=== PATIENT | male | born 1995 | race Caucasian/White ===

== ENCOUNTER → 2019-08-19 | Day surgery (SDC) | payer BC ==
[~2019-08-19] MED LIST: ACETAMINOPHEN 1000 MG/100 ML 100 ML IV ONE; ACETAMINOPHEN 1000 MG/100 ML IV ONE; BUPIVACAINE 0.25% 30ML SDV INJ ONE; CEFAZOLIN SOD 1 GM/NS 50ML 100 ML IV ONE; DEXAMETHASONE SOD PHOS INJ 4 MG/ML VIAL ONE; FENTANYL CITRATE/PF 100MCG/2 ML INJ ONE; LIDOCAINE HCL 2% LOCAL INJ 5 ML SDV VIAL INJ ONE; MIDAZOLAM HCL 2 MG/2 ML VIAL ONE; ONDANSETRON HCL INJ 2MG/ML 2ML 2 MG/ML VIAL ONE; PROPOFOL IV EMULSION 10 MG/ML 20 ML VIAL ONE; ROCURONIUM BROMIDE 10 MG/ML 5ML VIAL ONE; SEVOFLURANE INHAL SOLN 250 ML PEN BTL ONE
[2019-08-19 11:05] VITALS: BP 129/92
--- NOTE | 2019-08-19 15:17 | Operative Report ---
DATE OF PROCEDURE: 08/19/2019 SURGEON: Dwain Resendiz MD PREOPERATIVE DIAGNOSIS: Soft tissue mass of the back x2. POSTOPERATIVE DIAGNOSIS: Soft tissue mass of the back x2. PREOPERATIVE INDICATION: Treat disease, prevent mass related complications such as increase in size and pain. PROCEDURES: 1. Excision of soft tissue mass of back, 2 cm in (CPT 64365). 2. Excision of soft tissue mass of back, 2 cm in (CPT 13128-82). ANESTHESIA: General. VIDEO OPERATOR: Lobo Rowan, surgical [employer] assistant. GRAFTS: None. FINDINGS: Two soft tissue mass of the back in separate locations, 2 cm in greatest dimension. SPECIMENS: Two 2 cm masses sent separately. PROCEDURE IN DETAIL: The patient was brought to the operating room and was intubated under general endotracheal anesthesia. He was positioned prone with all pressure points appropriately padded. A preprocedure pause was performed. He was sterilely prepped and draped in the usual fashion. Two distinct transverse incision was made overlying two distinct mass in the right lower back. Dissection was carried and each of the masses were circumferentially dissected with a rim of healthy tissue and sent off to pathology in separate containers. The wounds were irrigated and closed with 4-0 Monocryl suture in a subcuticular fashion. A 10 mL of 0.25% bupivacaine was used at the local site for anesthesia. Dermabond dressing was applied. The patient tolerated the procedure well. Type of wound was type 1, clean. Dwain Resendiz MD [facility]/MODL /[id number]
== END | disposition home or self-care (01) ==
LOC: OR 07:16
PROVIDERS: ATTEND Surgery
DX: D17.9 Benign lipomatous neoplasm, unspecified (principal); Z88.6 Allergy status to analgesic agent
CPT/HCPCS: 21930 ×2; 88304; J0131; J0690; J1100; J2001; J2250; J2405; J2704; J3010